=== PATIENT | female | born 1955 | race Caucasian/White ===

== ENCOUNTER 2024-03-06 08:48 | Emergency (ER) | payer OTHER, SELFPAY ==
[2024-03-06 08:58] VITALS: BP 138/68
[2024-03-06 09:38] LABS: COVID-19 Antigen Negative (Negative)
[2024-03-06 09:47] LABS: ALT (SGPT) 44 U/L (0-35); AST (SGOT) 49 U/L (14-36); Albumin 3.5 g/dl (3.5-5.0); Alkaline Phosphatase 73 U/L (38-126); Blood Urea Nitrogen 13 mg/dl (7-17); Calcium 8.8 mg/dl (8.4-10.2); Carbon Dioxide 18 mmol/L (22-30); Chloride 107 mmol/L (98-107); Glucose 138 mg/dl (70-99); Potassium 3.5 mmol/L (3.5-5.1); Sodium 134 mmol/L (135-145); Total Bilirubin 4.3 mg/dl (0.2-1.3); Total Protein 6.6 g/dl (6.3-8.2); eGFR > 60.00
[2024-03-06 09:51] LABS: % Basophils 0.3 % (0-2); % Eosinophils 0.1 % (0-6); % Immature Granulocytes 0.7 % (0-0.5); % Monocytes 7.7 % (1.7-9.3); % Neutrophils 86.2 % (42.2-75.2); Absolute Basophils 0.1 10^3/uL (0-0.2); Absolute Immature Granulocytes 0.1 10^3/uL (0-0.05); Absolute Lymphocytes 0.7 10^3/uL (1.2-3.4); Absolute Monocytes 1.1 10^3/uL (0.1-0.6); Absolute Neutrophils 12.6 10^3/uL (1.4-6.5); Hematocrit 38.6 % (37.0-47.0); Hemoglobin 13.4 g/dL (12.0-16.0); Mean Corp Hgb Conc. 34.7 g/dL (33.0-37.0); Mean Corpuscular Hgb 30.6 pg (27.0-31.0); Mean Corpuscular Volume 88.1 fL (81.0-99.0); Mean Platelet Volume 11.7 fL (7.4-10.4); Nucleated Red Blood Cells % 0 %; Platelet Count 33 10^3/uL (130-400); Red Blood Cell Count 4.38 10^6/uL (4.20-5.40); Red Cell Dist. Width 15.5 % (11.5-14.5); White Blood Cell Count 14.6 10^3/uL (4.8-10.8)
--- NOTE | 2024-03-06 10:57 | ED.GENMED ---
History of Present Illness
General
Chief Complaint: Fall
Source: patient
Exam Limitations: none
Time Seen by Provider: 03/06/24 10:25
History of Present Illness
History of Present Illness:
68-year-old female presents via EMS after sliding out of bed and unable to get up off the floor. Her family had to help her off the floor. She presents for evaluation of this. She remembers sliding out of bed. She states she sustained no
injuries from this fall. She denies headache that is ongoing. She also notes a large blood blister that is improving over the anterior lower gum. This has been present for 3 to 4 days. No fevers or urinary symptoms. No chest pain or shortness
of breath. No other complaints at this time
Past History
Past History
ED Past Medical History: Other (Liver cirrhosis, thrombocytopenia, anxiety, skin cancer, hypothyroidism, asthma)
ED Past Surgical History: None
Social History
Tobacco: Non-smoker
Alcohol: None
Drug: None
Personal:
Living: with family
Phy Exam
Physical Exam
Physical Exam:
General: Well-appearing female no acute respiratory distress
HEENT: Normocephalic atraumatic there is a lesion over the anterior lower gum consistent with blood blister. This is actually draining a mild amount of blood and patient notes is improving in size. There is no surrounding fluctuance. Posterior
pharynx is patent without asymmetry it is no trismus or drooling. Neck is supple no adenopathy pupils equal round reactive to light
Heart: Regular rate and rhythm
Lungs: Clear no wheeze
Neurologic exam: Alert and oriented able to sit herself up in bed. Conversing appropriately. No facial asymmetry
Musculoskeletal exam: No tenderness about the spine. Arms and legs are moving well
Course
Orders/Labs/Results
Orders:
Orders
03/06/24 09:02
Electrocardiogram (*1) Urgent
Reason for Study: Other
Other Reason for Exam: fall
EKG- Treatment ONCE
03/06/24 09:05
CT Head W/o Iv Contrast Urgent
Comment:
Reason For Exam: fall, unknown head strike
03/06/24 09:09
COVID-19 Antigen Urgent
Source: Nasal Swab
Complete Blood Count/With Diff Urgent
Comprehensive Metabolic Panel Urgent
Influenza A+B Rapid Molecular Urgent
SHRUTHI Source: Nasal Swab
Specimen Description:
Abnormal Lab Results
03/06/24
09:09
WBC 14.6 H 10^3/uL
(4.8-10.8)
RDW 15.5 H %
(11.5-14.5)
Plt Count 33 L 10^3/uL
(130-400)
MPV 11.7 H fL
(7.4-10.4)
Abs Immat Gran (auto) 0.1 H 10^3/uL
(0-0.05)
Absolute Neuts (auto) 12.6 H 10^3/uL
(1.4-6.5)
Absolute Lymphs (auto) 0.7 L 10^3/uL
(1.2-3.4)
Absolute Monos (auto) 1.1 H 10^3/uL
(0.1-0.6)
Immature Gran % 0.7 H %
(0-0.5)
Neutrophils % 86.2 H %
(42.2-75.2)
Lymphocytes % 5.0 L %
(20.5-51.1)
Sodium 134 L mmol/L
(135-145)
Carbon Dioxide 18 L mmol/L
(22-30)
Glucose 138 H mg/dl
(70-99)
Total Bilirubin 4.3 H mg/dl
(0.2-1.3)
AST 49 H U/L
(14-36)
ALT 44 H U/L
(0-35)
03/06/24 09:09
03/06/24 09:09
Vital Signs
Initial and Last Documented VS:
Initial Vital Signs
Temp Pulse Resp BP Pulse Ox
99.9 F 102 16 138/68 98
03/06/24 08:58 03/06/24 08:58 03/06/24 08:58 03/06/24 08:58 03/06/24 08:58
Last Documented Vital Signs
Temp Pulse Resp BP Pulse Ox
99.6 F 88 18 132/65 98
03/06/24 11:09 03/06/24 11:09 03/06/24 11:09 03/06/24 11:09 03/06/24 11:09
MDM/Problems Addressed
Differential Diagnosis Includes:
Patient slid out of bed and was too weak to get off the floor required help. She sustained no injuries but CT of the head was performed through triage which is negative for acute finding. Secondary to weakness today tested for COVID and flu this
is negative. Labs reviewed she has leukocytosis but this is nonspecific. No infectious signs including urinary symptoms here today. I do believe patient does have a blood blister to her lower, I do not think this is an abscess. Recommended
continued warm salt water rinses and dental follow-up. Patient was ambulated through the hallway she expressed her desire to go home. Stable for discharge
*Critical Care Note
Total Time (30-74mins, 75-104mins- exclusive of procedures): Not Applicable
ED Attending Note
-
Portions of this chart may have been created with voice recognition software.� Occasional wrong word or��sound alike� substitutions may have occurred due to the inherent limitations of voice recognition software.
Discharge Plan
Departure
Patient Disposition: Home (Routine Discharge)
Date of Disposition: 03/06/24
Time of Disposition: 11:14
Patient with high blood pressure during this ER visit?: No
Discharge Problem:
Fall
Instructions: Preventing falls in adults
Prescriptions:
No Action
citalopram 40 mg Tablet
40 mg PO DAILY
cetirizine [Zyrtec] 10 mg Tablet
10 mg PO DAILY PRN (Reason: allergy)
thyroid (pork) [[place] Thyroid] 15 mg Tablet
45 mg PO DAILY
albuterol sulfate 90 mcg/actuation Hfa Aerosol Inhaler
1 puff INHALATION Q4H PRN (Reason: sob)
lactulose 20 gram/30 mL Solution
20 g PO DAILY Qty: 1200 0RF
Referrals:
Bridgette Villa DO [Family Provider] -
Activity Restrictions/Additional Instructions:
Use warm salt water rinses in the mouth. Use
Interventions
Interventions:
*Risk Screen - Suicide Last Done: 03/06/24 08:58
ED- Fall Risk Assessment Last Done: 03/06/24 11:07
ED-Musculoskeletal Assessment Last Done: 03/06/24 11:06
ED- Neurological Assessment Last Done: 03/06/24 11:06
ED-Skin Assessment Last Done: 03/06/24 11:06
Discharge Date and Time
Print Language: MOHAWK
[2024-03-06 11:09] VITALS: BP 132/65
== END 2024-03-06 11:19 | disposition home or self-care (01) ==
LOC: EMR 08:48
PROVIDERS: EMERGENCY PHYSICIAN Emergency Medicine; FAMILY PHYSICIAN Family Medicine
DX: Z04.3 Encounter for examination and observation following other accident (principal); R53.1 Weakness; W06.XXXA Fall from bed, initial encounter; K13.70 Unspecified lesions of oral mucosa; Z11.52 Encounter for screening for COVID-19; K74.60 Unspecified cirrhosis of liver; F41.9 Anxiety disorder, unspecified; E03.9 Hypothyroidism, unspecified; J45.909 Unspecified asthma, uncomplicated
CPT/HCPCS: 99284; 70450; 80053; 85025; 87502; 87811; 93005

== ENCOUNTER → 2024-03-28 11:00 | Outpatient (REF) | payer OTHER, SELFPAY | LOC: WDC 11:00 | PROVIDERS: ATTENDING PHYSICIAN Family Medicine | DX: Z12.31 Encounter for screening mammogram for malignant neoplasm of breast (principal) | CPT/HCPCS: 77063; 77067 ==

== ENCOUNTER 2024-04-23 09:45 | Emergency (ER) | payer OTHER, SELFPAY ==
[2024-04-23 09:47] VITALS: BP 149/71
--- NOTE | 2024-04-23 10:45 | ED.GENMED ---
History of Present Illness
General
Chief Complaint: Fall
Source: patient
Exam Limitations: none
Time Seen by Provider: 04/23/24 10:32
Nursing documentation reviewed up to this point in time: agreed with
History of Present Illness
History of Present Illness:
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 Patient was a near accident 2 days ago and fell getting into bed. She landed on the ground and hit the left side of her face and
knee. She had no loss of consciousness. She went to the show afterward however she presents here with increasing bruising to the left side of her face and rib pain. Her primary complaint however is left-sided rib pain worse when she takes a deep
breath. She does not feel short of breath with this.
She does have a headache. She is not on blood thinners. 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 She denies any nausea or vomiting. She is able to bear weight on this left knee but does complain of soreness to
the left knee.
Past History
Past History
ED Past Medical History: Other (Liver cirrhosis, thrombocytopenia, anxiety, skin cancer, hypothyroidism, asthma)
ED Past Surgical History: None
Social History
Tobacco: Non-smoker
Alcohol: None
Drug: None
Personal:
Living: with family
Review of Systems
Review of Systems
Allergies reviewed?: Yes
All Other Systems: ROS reviewed and negative except as documented in HPI and ROS
Constitutional: Reports no symptoms; Denies fever, fatigue or chills
EENT: Reports no symptoms
Respiratory: Reports other (left sided rib pain with deep breath )
Cardiac: Denies chest pain
ABD/GI: Denies nausea or vomiting
: Reports no symptoms
Musculoskeletal: Reports other (left knee pain ; sore to left neck )
Neurological: Reports headache (no LOC )
Psychiatric: Reports no symptoms
Phy Exam
General Physical Exam
General Presentation: no apparent distress
General age: appears stated age
General Skin: warm and dry
General Habitus: normal
General Mental: alert
General Hydration: appears well hydrated
ENT Exam
ENT Exam: EOMI
Eye Exam
Eye Exam: PERRL, EOMI and other (Positive for subconjunctival hemorrhage to the medial aspect of her right eye, mild subconjunctival hemorrhage scattered to left eye , no entrapment )
Eye Exam General: PERRL: bilateral and EOM intact: bilateral
Pupil Exam: Bilateral: round and reactive
Cardiovascular Exam
Cardiovascular Exam: regular rate/rhythm and normal peripheral pulses
Pulmonary Exam
Pulmonary Exam: lungs clear, no respiratory distress and other (+ tenderness to anterior left rib no ecchymosis no crepitus)
Gastrointestinal Exam
Gastrointestinal Exam: non tender and soft
Neurological Exam
Neurological Exam: alert and oriented x3
Musculoskeletal Exam
Musculoskeletal Exam: full ROM, joint swelling and other (Patient with scattered ecchymosis to the left side of the face left ; full range of motion to all extremities mildly tender to left anterior knee.)
Skin Exam
Skin Exam: normal color and warm/dry
Psychiatric Exam
Psychiatric Exam: normal mood/affect
Course
Orders/Labs/Results
Orders:
Orders
04/23/24 10:43
CT Cervical Spine W/o Iv Contr Urgent
Comment:
Reason For Exam: trauma
CT Facial Bones W/o Iv Contras Urgent
Comment:
Reason For Exam: trauma
CT Head W/o Iv Contrast Urgent
Comment:
Reason For Exam: trauma
Ribs, Right 3 View W/PA Chest [CR Ribs-right 3 Vw W/pa Chest*] Urgent
Comment:
Reason For Exam: trauma
04/23/24 10:44
IV Insert/Care/Rem.- Treatment PRN
Knee, Left 4 or More Views [CR Knee - Left 4 Or More View*] Urgent
Comment:
Reason For Exam: trauma
04/23/24 11:05
Complete Blood Count/With Diff Urgent
Comprehensive Metabolic Panel Urgent
PTT Urgent
Prothrombin Time Urgent
04/23/24 14:17
CT Chest With Iv Contrast Urgent
Comment:
Reason For Exam: trauma
Abnormal Lab Results
04/23/24
11:05
RBC 3.88 L 10^6/uL
(4.20-5.40)
Hgb 11.9 L g/dL
(12.0-16.0)
Hct 34.7 L %
(37.0-47.0)
RDW 15.3 H %
(11.5-14.5)
Plt Count 48 L 10^3/uL
(130-400)
MPV 10.7 H fL
(7.4-10.4)
PT 16.9 H Sec
(11.4-14.6)
Chloride 113 H mmol/L
(98-107)
Glucose 115 H mg/dl
(70-99)
Total Bilirubin 2.2 H mg/dl
(0.2-1.3)
Total Protein 6.2 L g/dl
(6.3-8.2)
Albumin 3.3 L g/dl
(3.5-5.0)
04/23/24 11:05
04/23/24 11:05
Vital Signs
Initial and Last Documented VS:
Initial Vital Signs
Temp Pulse Resp BP Pulse Ox
98.6 F 77 16 149/71 97
04/23/24 09:47 04/23/24 09:47 04/23/24 09:47 04/23/24 09:47 04/23/24 09:47
Last Documented Vital Signs
Temp Pulse Resp BP Pulse Ox
98.6 F 61 12 166/71 98
04/23/24 09:47 04/23/24 14:45 04/23/24 14:30 04/23/24 14:00 04/23/24 14:45
MDM/Problems Addressed
Differential Diagnosis Includes:
Not limited to bruising facial fracture head injury, rib fracture
MDM/Problems Addressed:
As documented patient is a 6-year-old female with history of low platelets presents to the ER for evaluation after fall. She fell 2 days ago and had no loss of conscious at that time and not on blood thinners. She does have a mild headache, no
nausea vomiting. She does have bruising to the face. She also complains of pain to the left rib. Patient has on exam bruising scattered throughout her face with subconjunctival hemorrhage. She is awake alert however no acute distress.
CAT scans and x-rays ordered.
Labs reviewed patient's platelets are low at 48,000. This is baseline for patient. She does have a history of cirrhosis her bilirubin is mildly elevated
CT head negative CT facial bones no fractures there is new complete opacification of the left sinus may be due to chronic sinus disease however underlying mass such as polyp cannot be excluded patient given a copy of this for additional follow-up
will refer to ENT. (she follows with DR Larson)
CT chest neg for fractre.
pt is stable for d/c home s/s consistent with bruising. Her platelets are baseline and she follows with her family doctor for this will have patient continue to follow-up. She is allowed to take ibuprofen however Tylenol is contraindicated because
she has cirrhosis.
*Radiology
Radiology exam reviewed: radiology read reviewed
*Pulse Oximetry
Patient hypoxic: no
*Critical Care Note
Total Time (30-74mins, 75-104mins- exclusive of procedures): Not Applicable
ED Attending Note
-
Portions of this chart may have been created with voice recognition software.� Occasional wrong word or��sound alike� substitutions may have occurred due to the inherent limitations of voice recognition software.
Discharge Plan
Departure
Patient Disposition: Home (Routine Discharge)
Date of Disposition: 04/23/24
Time of Disposition: 16:28
Patient with high blood pressure during this ER visit?: Yes
Condition: Fair
Covid-19: Not Applicable
Discharge Problem:
Contusion
Instructions: Contusion (DC), BLOOD PRESSURE
Prescriptions:
No Action
citalopram 40 mg Tablet
40 mg PO DAILY
cetirizine [Zyrtec] 10 mg Tablet
10 mg PO DAILY PRN (Reason: allergy)
thyroid (pork) [[place] Thyroid] 15 mg Tablet
45 mg PO DAILY
albuterol sulfate 90 mcg/actuation Hfa Aerosol Inhaler
1 puff INHALATION Q4H PRN (Reason: sob)
lactulose 20 gram/30 mL Solution
20 g PO DAILY Qty: 1200 0RF
Referrals:
Esme Goldsmith MD [Family Provider] -
Activity Restrictions/Additional Instructions:
As discussed symptoms are consistent with bruises however there are no obvious fractures.
Please follow-up with your earth burner for findings on facial bone ct scan .
You may take your ibuprofen and ice area. Follow-up with your family doctor in the next several days for reevaluation of your symptoms .
return if any worsening of symptoms
Interventions
Interventions:
*Risk Screen - Suicide Last Done: 04/23/24 11:08
*General Assessment Last Done: 04/23/24 11:08
*Neglect/Abuse Screening Last Done: 04/23/24 11:08
*ED- Fall Risk Assessment Last Done: 04/23/24 11:08
*ED COVID-19 Vaccine History Last Done: 04/23/24 11:08
ED-Musculoskeletal Assessment Last Done: 04/23/24 11:08
ED- Neurological Assessment Last Done: 04/23/24 11:08
ED-Skin Assessment Last Done: 04/23/24 11:08
Discharge Date and Time
Print Language: HEBREW
[2024-04-23 11:03] VITALS: BP 122/61
[2024-04-23 11:33] LABS: % Basophils 0.8 % (0-2); % Eosinophils 4.3 % (0-6); % Immature Granulocytes 0.4 % (0-0.5); % Lymphocytes 25.3 % (20.5-51.1); % Monocytes 9.3 % (1.7-9.3); % Neutrophils 59.9 % (42.2-75.2); Absolute Eosinophils 0.2 10^3/uL (0-0.7); Absolute Lymphocytes 1.2 10^3/uL (1.2-3.4); Absolute Monocytes 0.5 10^3/uL (0.1-0.6); Absolute Neutrophils 2.9 10^3/uL (1.4-6.5); Hematocrit 34.7 % (37.0-47.0); Hemoglobin 11.9 g/dL (12.0-16.0); Mean Corp Hgb Conc. 34.3 g/dL (33.0-37.0); Mean Corpuscular Hgb 30.7 pg (27.0-31.0); Mean Corpuscular Volume 89.4 fL (81.0-99.0); Mean Platelet Volume 10.7 fL (7.4-10.4); Nucleated Red Blood Cells % 0 %; Platelet Count 48 10^3/uL (130-400); Red Blood Cell Count 3.88 10^6/uL (4.20-5.40); Red Cell Dist. Width 15.3 % (11.5-14.5); White Blood Cell Count 4.9 10^3/uL (4.8-10.8)
[2024-04-23 11:37] LABS: INR 1.34; PT 16.9 Sec (11.4-14.6)
[2024-04-23 11:38] LABS: APTT 32.8 Sec (23.4-35.0)
[2024-04-23 11:42] LABS: ALT (SGPT) 25 U/L (0-35); AST (SGOT) 34 U/L (14-36); Albumin 3.3 g/dl (3.5-5.0); Alkaline Phosphatase 87 U/L (38-126); Blood Urea Nitrogen 12 mg/dl (7-17); Calcium 8.9 mg/dl (8.4-10.2); Carbon Dioxide 22 mmol/L (22-30); Chloride 113 mmol/L (98-107); Glucose 115 mg/dl (70-99); Potassium 3.7 mmol/L (3.5-5.1); Sodium 138 mmol/L (135-145); Total Bilirubin 2.2 mg/dl (0.2-1.3); Total Protein 6.2 g/dl (6.3-8.2); eGFR > 60.00
[2024-04-23 12:31] VITALS: BP 143/62
[2024-04-23 13:00] VITALS: BP 150/70
[2024-04-23 14:00] VITALS: BP 166/71
== END 2024-04-23 16:40 | disposition home or self-care (01) ==
LOC: EMR 09:45
PROVIDERS: Nurse Practitioner; EMERGENCY PHYSICIAN Emergency Medicine; FAMILY PHYSICIAN Student in an Organized Health Care Education/Training Program
DX: S00.83XA Contusion of other part of head, initial encounter (principal); R07.81 Pleurodynia; W19.XXXA Unspecified fall, initial encounter; Z85.828 Personal history of other malignant neoplasm of skin; D68.1 Hereditary factor XI deficiency; E03.9 Hypothyroidism, unspecified; J45.909 Unspecified asthma, uncomplicated; K74.60 Unspecified cirrhosis of liver
CPT/HCPCS: 99284; 70450; 70486; 71101; 71260; 72125; 73564; 80053; 85025; 85610; 85730; Q9967